=== PATIENT | male | born 1950 | race Caucasian/White ===

== ENCOUNTER → 2018-05-15 | Day surgery (SDC) | payer OTHER ==
[2018-04-26 12:06] VITALS: BMI 39.0
--- NOTE | 2018-04-26 16:13 | PAT Medication Instructions ---
Service Date Apr 26, 2018. Current Home Medication List Acetaminophen (Tylenol Arthritis Ext Rel), 1,350 MG PO Q8HR PRN Celecoxib (Celebrex), 200 MG PO DAILY Cyclobenzaprine Hcl (Flexeril), 10 MG PO TID PRN for Muscle Spasms Fish Oil (Desha-3), 1 CAP PO DAILY Hydrocodone/Acetaminophen 5MG/325MG ([place] 5MG/325MG), 1 TABLET PO Q6H PRN for Pain Irbesartan (Avapro *), 75 MG PO QAM Levothyroxine Sodium (Synthroid), 50 MCG PO QAM Metoprolol Succinate (Toprol Xl), 50 MG PO QPM Multivitamin (Multivitamin), 1 TAB PO DAILY Rivaroxaban (Xarelto), 20 MG PO DAILY Simvastatin (Zocor), 40 MG PO QPM [Aller Clear], 10 MG PO DAILY PRN [Glucosamine/Issa], 1 TAB PO BID Medication Instructions For Your Scheduled Surgery - Hold the following medications 2 weeks prior to surgery: [Glucosamine/Issa], 1 TAB PO BID Fish Oil (Desha-3), 1 CAP PO DAILY - Check with surgeon and prescribing physician for instructions: Rivaroxaban (Xarelto), 20 MG PO DAILY Celecoxib (Celebrex), 200 MG PO DAILY - Hold the following medications the morning of surgery: [Aller Clear], 10 MG PO DAILY PRN Multivitamin (Multivitamin), 1 TAB PO DAILY Irbesartan (Avapro *), 75 MG PO QAM Cyclobenzaprine Hcl (Flexeril), 10 MG PO TID PRN for Muscle Spasms - Take the following medications the morning of surgery with a sip of water: Acetaminophen (Tylenol Arthritis Ext Rel), 1,350 MG PO Q8HR PRN (okay to take up to 4 hours prior to surgery if needed) Hydrocodone/Acetaminophen 5MG/325MG ([place] 5MG/325MG), 1 TABLET PO Q6H PRN for Pain (okay to take up to 4 hours prior to surgery if needed) Levothyroxine Sodium (Synthroid), 50 MCG PO QAM - Take the following medications as scheduled the night before surgery: [Aller Clear], 10 MG PO DAILY PRN (if needed) Simvastatin (Zocor), 40 MG PO QPM Metoprolol Succinate (Toprol Xl), 50 MG PO QPM Hydrocodone/Acetaminophen 5MG/325MG ([place] 5MG/325MG), 1 TABLET PO Q6H PRN for Pain (if needed) Cyclobenzaprine Hcl (Flexeril), 10 MG PO TID PRN for Muscle Spasms (if needed) Acetaminophen (Tylenol Arthritis Ext Rel), 1,350 MG PO Q8HR PRN (if needed) If you have any questions please call us at [phone] or [phone] or [phone]
[2018-04-27 10:42] VITALS: BMI 38.0
--- NOTE | 2018-04-27 11:56 | DIAGNOSTIC IMAGING REPORT ---
CHEST 2 VIEWS ROUTINE HISTORY: 67 years-old Male pat preoperative exam with acute cough COMPARISON: Chest radiograph 04/28/2010 TECHNIQUE: PA and lateral views of the chest FINDINGS: Cardiac silhouette is mildly enlarged, increased in size from comparison. No pneumothorax, pleural effusion, focal airspace consolidation or overt pulmonary edema. Mild right hemidiaphragmatic elevation. Bones of the chest appear grossly intact. There are degenerative changes of the shoulders and spine. Calcified body inferior to the left coracoid process is likely within the subscapularis recess, 13 mm. IMPRESSION: 1. Cardiomegaly without acute process. 2. Mild right hemidiaphragmatic elevation. The above report was generated using voice recognition software. It may contain grammatical, syntax or spelling errors. Electronically signed by: Bairon Washburn M.D. 04/27/2018 11:54 AM Dictated Date/Time: 04/27/2018 11:53 AM
[2018-04-27 12:12] LABS: BASO % 0.5 %; BASO ABS # 0.04 K/uL (0-0.2); EOS % 9.2 %; EOS ABS # 0.74 K/uL (0-0.5); HEMATOCRIT 44.6 % (42-52); HEMOGLOBIN 15.6 g/dL (14.0-18.0); IG# 0.02 K/uL (0.00-0.02); LYMPH % 23.8 %; LYMPH ABS # 1.92 K/uL (1.2-3.4); MEAN CELL VOLUME 94.1 fL (80-100); MEAN CORPUSCULAR HEMOGLOBIN 32.9 pg (25-34); MEAN PLATELET VOLUME 11.1 fL (7.4-10.4); MONO % 11.3 %; MONO ABS # 0.91 K/uL (0.11-0.59); NEUT ABS # 4.44 K/uL (1.4-6.5); PLATELET COUNT 187 K/uL (130-400); RED CELL DISTRIBUTION WIDTH CV 13.2 % (11.5-14.5); RED CELL DISTRIBUTION WIDTH SD 45.2 fL (36.4-46.3); WHITE BLOOD COUNT 8.07 K/uL (4.8-10.8)
[2018-04-27 12:19] LABS: CALCIUM 9.2 mg/dl (8.5-10.1); CREATININE 0.9 mg/dl (0.60-1.40); POTASSIUM 4.6 mmol/L (3.5-5.1)
[2018-04-27 12:30] LABS: INR 1.1 (0.9-1.1); PTT PATIENT 29.9 SECONDS (21.0-31.0)
--- NOTE | 2018-05-14 16:22 | HISTORY & PHYSICAL EXAMINATION ---
DATE OF ADMISSION: 05/15/2018 CHIEF COMPLAINT: Chronic right hand pain. HISTORY OF PRESENT ILLNESS: This is a 67-year-old male patient of Dr. Granados'rosio complaining of chronic right hand pain, longstanding, now progressively getting worse. He has been diagnosed with CMC arthritis of the thumb. He has failed conservative treatment and wishes to proceed with a right hand CMC joint arthroplasty. PAST MEDICAL HISTORY: Hypertension, sleep apnea with the use of CPAP, rheumatoid arthritis. SOCIAL HISTORY: Nonsmoker, nondrinker. FAMILY HISTORY: Noncontributory. REVIEW OF SYSTEMS: Chronic right hand pain. Otherwise, denies any shortness of breath, chest pain, nausea, vomiting or any other joint complaints. PAST SURGICAL HISTORY: Going to be presented on admission. MEDICATIONS: 1. Clindamycin 300 mg every 6 hours as needed. 2. Simvastatin 40 mg daily. 3. AllerClear 10 mg daily. 4. Fish oil daily. 5. Metoprolol 50 mg daily. 6. Xarelto 20 mg daily. 7. Multivitamin daily. 8. Loratadine 10 mg daily. 9. Chondroitin sulfate daily. 10. Cyclobenzaprine 10 mg 3 times daily. 11. Quinby as needed. 12. Lynn-3 fatty acids as needed. 13. Glucosamine as needed. 14. Celebrex 200 mg daily as needed. ALLERGIES: PENICILLIN, QUINOLONES AND SULFA. PHYSICAL EXAMINATION: GENERAL: Well-developed, well-nourished 67-year-old male in no acute distress. He is alert and oriented x3 and pleasant. HEENT: Normocephalic, atraumatic. Extraocular motions are intact. Pupils are equal and reactive to light. HEART: Regular rate and rhythm with no murmurs appreciated. LUNGS: Clear. ABDOMEN: Soft and nontender. Bowel sounds present. EXTREMITIES: Right hand reveals full range of motion of the thumb with pain. He has a positive grind test with a CMC joint. NEUROLOGIC: Neurovascularly, he is intact in his right hand. DIAGNOSES: Right hand CMC joint end-stage osteoarthritis with a history of hypertension, sleep apnea with use of CPAP, rheumatoid arthritis. PLAN: The patient was advised of his diagnoses. Indications, risks, benefits, postop course have all been reviewed. The patient wished to proceed with a right hand CMC joint arthroplasty. Necessary consent forms, preoperative testing and clearances will be obtained.
[~2018-05-15] VITALS: Ht 180.3 cm; Wt 124.4 kg
[~2018-05-15] MED LIST: ACET1TAB84 PO; ALLER CLEAR PO; ATROPINE SULFATE 0.1 MG/ML 5ML SYR IV PRN; AVP150 PO; BUPIVACAINE 0.25% 30 ML VIAL ONE; CELE100C PO; CYCL10TA6 PO; DEXAMETHASONE SOD INJ 4 MG/ML VIAL ONE; EpHEDrine SULFATE INJ 50 MG/ML AMP IV PRN; EpINEphrine INJ 1MG/ML AMP 1 MG/ML AMP ONE; FENTANYL CITRATE INJ 50 MCG/1 ML 2 ML VIAL IV PRN; FENTANYL CITRATE INJ 50 MCG/1 ML 2 ML VIAL ONE; GLUCOSAMINE/CHON PO; HYDR-5688 PO; HYDROmorphone INJ 1 MG/ML SYR IV PRN; KETOROLAC TROMETHAMINE 15 MG/ML VIAL IV. PRN; LACTATED RINGER'S 1000ML 1,000 ML IV SCH; LEVO50TA PO; LIDOCAINE HCL 2% 2 ML VIAL (20MG/ML) ONE; METO-217 PO; MIDAZOLAM HCL 1 MG/ML 2ML VIAL ONE; MULT-506 PO; MoRPHine SULFATE 2 MG/ML CARP IV PRN; OMEG10007 PO; ONDANSETRON INJ 2 MG/ML 2 ML VIAL IV PRN; ONDANSETRON INJ 2 MG/ML 2 ML VIAL ONE; OXYC-57 PO; PROPOFOL IV EMULSION 10 MG/ML 20 ML VIAL ONE; RIVA1TAB4 PO; ROPIVACAINE 0.5% 5 MG/ML 30 ML VIAL ONE; SIMV40TA4 PO; VANCOMYCIN IV 1,750 MG in SODIUM CHLORIDE 0.9% 500ML 500 ML IV SCH
[2018-05-15 06:45] VITALS: BP 138/81; PULSE 70; TEMP 36.5; O2SAT 95; Ht 180.3 cm; Wt 124.4 kg
--- NOTE | 2018-05-15 06:54 | History & Physical Bridge Note ---
H&P Re-Evaluation Bridge Note: I have examined the patient, reviewed the History & Physical and in the interval since the performance of the History & Physical I have noted the following changes of clinical significance: No changes noted
--- NOTE | 2018-05-15 11:00 | Discharge Instructions ---
Discharge Instructions Date of Service May 15, 2018. Visit Reason for Visit: Osteoarthritis Of First Carpometacarpal Joint Righ Discharge Discharge Diagnosis / Problem: Osteoarthritis of Right First Carpometacarpal Joint Discharge Goals Goal(s): Decrease discomfort, Improve function Activity Recommendations Activity Limitations: per Instructions/Follow-up section Anesthesia . Post Anesthesia Instructions: If you have had General Anesthesia or IV Sedation: * Do not drive today. * Resume driving when surgeon permits. * Do not make important decisions or sign legal documents today. * Call surgeon for: 1. Temperature elevations greater than 101 degrees F. 2. Uncontrollable pain. 3. Excessive bleeding. 4. Persistent nausea and vomiting. 5. Medication intolerance (nausea, vomiting or rash). * For nausea and vomiting use only clear liquids such as: tea, soda, bouillon until nausea subsides, then gradually increase diet as tolerated. * If you have any concerns or questions, call your surgeon's office. If physician is unavailable and it is an emergency, call 911 or go to the nearest emergency room. . Instructions / Follow-Up Instructions / Follow-Up ACTIVITY RECOMMENDATIONS: * No active movement of the thumb at this time. No lifting with the right hand /arm. SPECIAL CARE INSTRUCTIONS: * Your bandage should be left in place until seen in the office for return visit. * Keep dressing/splint clean and dry. You may shower if you use a waterproof dressing to cover the whole splint. * Some drainage onto the dressing may occur. This is normal. * If the bandage feels excessively tight, you may loosen the elastic bandage. Then call the physician's office for further instructions. * If possible, keep your hand elevated above the level of your heart for the first 2 post operative days. You may use a sling if necessary. * You can place a small bag of ice over the thumb/wrist regularly for the first 48 hours. Then as needed. SPECIAL PRECAUTIONS: * If you notice increased drainage, fever over 101 degrees F. or severe, unremitting pain, call your physician/office at . * You may have been prescribed pain medication. If you experience nausea and/or skin rash, discontinue this medication and contact our office for an alternative medication. FOLLOW UP VISIT: If appointment is not already scheduled: Please call [facility] to make a follow-up appointment to see Dr Granados in 10-14 days form the day of your surgery at . Diet Recommendations Recommended Home Diet: resume previous diet Procedures Procedures Performed: Right Hand Carpometacarpal Joint Arthroplasty Pending Studies Studies pending at discharge: no Medical Emergencies . Who to Call and When: Medical Emergencies: If at any time you feel your situation is an emergency, please call 911 immediately. . Non-Emergent Contact Non-Emergency issues call your: Surgeon Call Non-Emergent contact if: temperature is above 101.5, your pain is not controlled, your pain is worsening, wound has increased drainage, wound has increased redness . . "Provider Documentation" section prepared by Mike Valencia. . [place] Drug Monitoring Program Search Results: patient reviewed within database, no issues identified
--- NOTE | 2018-05-15 11:16 | Anesthesiology Progress Note ---
Anesthesia Post Op Note Date & Time May 15, 2018 at 11:16 Vital Signs Pain Intensity: 0 Vital Signs Past 12 Hours Date Time Temp Pulse Resp B/P (MAP) Pulse Ox O2 Delivery O2 Flow Rate FiO2 05/15/18 11:11 158/79 05/15/18 11:09 77 20 100 05/15/18 11:09 70 20 05/15/18 11:08 133/85 05/15/18 11:04 75 18 05/15/18 11:04 76 18 98 05/15/18 11:03 63 18 100 05/15/18 11:03 63 18 05/15/18 11:02 149/96 05/15/18 10:58 72 18 100 05/15/18 10:58 71 18 05/15/18 10:56 152/74 05/15/18 10:53 77 22 96 05/15/18 10:53 75 22 05/15/18 10:52 142/79 05/15/18 10:50 139/109 05/15/18 10:48 36.2 78 16 139/109 98 Oxymask 10 05/15/18 06:45 36.5 70 18 138/81 (100) 95 Room Air Notes Mental Status: alert / awake / arousable, participated in evaluation Pt Amnestic to Procedure: Yes Nausea / Vomiting: adequately controlled Pain: adequately controlled Airway Patency, RR, SpO2: stable & adequate BP & HR: stable & adequate Hydration State: stable & adequate Anesthetic Complications: no major complications apparent
[2018-05-15 11:45] VITALS: BP 162/78; PULSE 73; TEMP 36.5; O2SAT 92
[2018-05-15 12:15] VITALS: BP 157/93; PULSE 64; TEMP 36.5; O2SAT 97
--- NOTE | 2018-05-15 20:51 | OPERATIVE REPORT ---
DATE OF OPERATION: 05/15/2018 INDICATION FOR PROCEDURE: The patient is a 67-year-old male with chronic arthritis in the base of his CMC joint of his right thumb. He has tried all kinds of conservative management, bracing and medication. At this point, radiographs demonstrate bone on bone with some subluxation and the patient wants to proceed with the surgical intervention. He does have some history of sleep apnea, so we had procedure performed here at [facility] as precaution. The patient was also on chronic anticoagulants, which were held preoperatively. PREOPERATIVE DIAGNOSIS: Right end-stage CMC joint osteoarthritis. POSTOPERATIVE DIAGNOSIS: Right end-stage CMC joint osteoarthritis. PROCEDURE: Right CMC joint arthroplasty using a ligament reconstruction and tendon interpositional arthroplasty using a split flexor carpi radialis tendon graft. SURGEON: Jaziel Granados MD DIRECTOR OF PUPIL PERSONNEL PROGRAM: SUHAIL Cerna. ANESTHESIA: General and axillary block. OPERATIVE PROCEDURE: The patient was actually brought, placed under general anesthetic in supine position. A pneumatic tourniquet placed in the right upper arm. His right upper extremity was prepped and draped in sterile fashion. His arm was elevated and exsanguinated with Esmarch bandage. Pneumatic tourniquet was raised to 250 mmHg. The patient already had a ganglion excised of his wrist. We had a zigzag incision across his volar radial wrist. We used this as the distal harvest site for the post-carpal radialis tendon. Two small transverse incisions were made at the proximal arm as well to help with the tendon harvesting. A longitudinal incision was made independently over the CMC joint. Skin was incised sharply there. Subcutaneous flaps were elevated. The sensory branches of the superficial radial nerve were dissected out and retracted and protected throughout the procedure. The interval between the extensor brevis and the abductor pollicis longus was divided finding the tendon sheath and the tendons were retracted and the capsule was divided over the CMC joint. CMC joint demonstrate grade IV [id number]. There were osteophytes. There were some small ganglion cysts over the posterior carpi radialis tendon noted as well. The subperiosteal dissection was performed around the base of the first metacarpal and subperiosteally around the trapezium. The trapezium was split with an artist chisel and then removed piecemeal with a rongeur, preserving the posterior carpi radialis tendon. All the trapezius was fully removed. Small loose bodies, osteophytes, and all the cysts were excised. Then, the tendon was harvested using an umbilical tape to split the tendon in the midline with 50% of the radial side used for graft. It was detached at the musculotendinous junction brought down into the lower incision. A 3-0 mersilene whipstitch was placed into the end of the tendon. This passed into the trapezium fossa area along the course of its normal tendon course. Then, the tendon was split down to the base of the second metacarpal at its attachment site. A 3-0 Mersilene suture was placed into the capsule base of the joint for suturing the graft later in the procedure and then the end of the articular surface of the first metacarpal was resected using an oscillating saw. A drill hole was made into the canal. A dorsal radial incision was made through the metacarpal 1 cm distal to the joint resection site. This was irrigated out copiously and the tendon was passed through the drill hole and looped upon itself as a check rein ,the first metacarpal was placed in some abduction and the base was adducted toward the base of the second metacarpal and the tendon graft tightened about the base of the first metacarpal and then sutured to itself with three individual size 4-0 FiberWire sutures. Then, remainder of the graft was placed into an anchovy shape using the 3-0 mersilene sutures passing the graft and this was tied down to the capsule holding the graft in place. Then, the dorsal capsule was repaired with the [id number] 4-0 FiberWire sutures. This completed the repair. The reconstruction was stable to stress. There was no proximal migration of the thumb. Alignment was satisfactory. Then, the subcutaneous incisions just over the base of the thumb were closed with 2-0 Vicryl subcutaneous sutures and then the skin was closed with 4-0 nylon vertical mattress sutures. The other incisions were closed with 4-0 nylon vertical mattress sutures. Sterile dressings were applied and a thumb spica splint was applied. The tourniquet was let down. The patient had good capillary refill of the extremity. The patient tolerated the procedure well. SUHAIL Cerna was my microbiology lab assistant. He was present for the entire procedure. He assisted in patient positioning, prepping, draping, arm positioning, soft tissue retraction, and he performed the subcutaneous skin closures, dressings, splint application, and will participate in postoperative care of the patient. I attest to the content of the Intraoperative Record and any orders documented therein. Any exceptions are noted below. SOFIA
== END | disposition home or self-care (01) ==
LOC: C.ACU 05:58
PROVIDERS: ATTEND Orthopaedic Surgery Sports Medicine
DX: M19.041 Primary osteoarthritis, right hand (principal); E03.9 Hypothyroidism, unspecified; I10 Essential (primary) hypertension; E66.9 Obesity, unspecified; I48.91 Unspecified atrial fibrillation; F17.200 Nicotine dependence, unspecified, uncomplicated; G47.30 Sleep apnea, unspecified; Z79.899 Other long term (current) drug therapy; Z88.0 Allergy status to penicillin; Z88.2 Allergy status to sulfonamides; Z88.8 Allergy status to other drugs, medicaments and biological substances